=== PATIENT | male | born 1945 | race African-American/Black ===

== ENCOUNTER 2020-01-30 06:18 | Emergency (ER) | payer OTHER ==
[~2020-01-30] VITALS: Ht 175.3 cm; Wt 73.0 kg
[2020-01-30 06:50] LABS: BASOPHILS % 0.1 % (0.0-2.0); EOSINOPHILS % 0.4 % (0.0-5.0); HEMATOCRIT. 29.8 % (42.0-52.0); HEMOGLOBIN. 10.1 g/dL (14.0-18.0); LYMPHOCYTES % 12.3 % (20.0-50.0); MEAN CORPUSCULAR HEMOGLOBIN 28.4 pg (28.0-32.0); MEAN CORPUSCULAR VOLUME 83.8 fL (80.0-94.0); MEAN PLATELET VOLUME 7.9 fl (7.4-10.4); MONOCYTES % 7.2 % (2.0-8.0); PLATELET 682 x1000/uL (130-400); RED BLOOD CELL COUNT 3.55 mill/uL (4.7-6.1)
[2020-01-30 06:51] LABS: CHLORIDE 104 mEq/L (98-107)
[2020-01-30 07:19] VITALS: BP 104/55
== END 2020-01-30 07:54 | disposition home or self-care (01) ==
LOC: ER 06:18
DX: R00.2 Palpitations (principal); D64.9 Anemia, unspecified; E11.65 Type 2 diabetes mellitus with hyperglycemia; Z79.4 Long term (current) use of insulin; Z79.84 Long term (current) use of oral hypoglycemic drugs; R79.89 Other specified abnormal findings of blood chemistry
CPT/HCPCS: 36415; 71045; 80053; 83880; 84484; 85025; 93005; 99285